=== PATIENT | male | born 1975 | race Two or more races ===

== ENCOUNTER 2021-06-03 12:21 | Emergency (ER) | payer OTHER ==
[~2021-06-03] VITALS: Ht 175.3 cm; Wt 86.4 kg
[2021-06-03 14:55] VITALS: BP 136/78
== END 2021-06-03 15:56 | disposition home or self-care (01) ==
LOC: EMS 12:24
DX: Z02.89 Encounter for other administrative examinations (principal)
CPT/HCPCS: 99283; Z7502